=== PATIENT | male | born 1995 | race Asian ===

== ENCOUNTER 2017-09-20 18:48 | Emergency (ER) | payer OTHER ==
[2017-09-20 18:54] VITALS: BP 157/101; PULSE 95; RESP 16; TEMP 97.5; O2SAT 97
--- NOTE | 2017-09-20 19:22 | EDPHY ---
H & P Time Seen by Provider: 09/20/17 19:11 HPI/ROS: CHIEF COMPLAINT: Boil in the armpit HISTORY OF PRESENT ILLNESS: Swelling right armpit and pain x1 week, history of previous abscess REVIEW OF SYSTEMS: No IV drug abuse and no fevers or chills, no weakness or numbness in the right hand PAST MEDICAL HISTORY: Negative, no diabetes General Appearance: Alert and conversant, cooperative. Patient has 2 areas of swelling induration and fluctuance in the right armpit, 1 is 1 cm and 1 is 5 mm. Very mild surrounding erythema. No blisters or crepitus. Normal motor and sensory in the right hand before and after the procedure.. Emergency Department course/MDM: Procedure: Abscess drainage. The patient's abscess was located on the right armpit x2. I obtained verbal consent from the patient to drain the abscess who was informed about the possibility of bleeding and pain. The area was prepped and draped in the usual sterile fashion, with 1% lidocaine without epinephrine used for local anesthesia. The abscess was incised with a #11 scalpel and a small amount of purulent drainage was expressed. I irrigated the wound and placed iodoform packing. The patient tolerated the procedure well. The procedure was performed by myself. Smoking Status: Never smoked Constitutional: Initial Vital Signs Temperature (C) 36.4 C 09/20/17 18:49 Heart Rate 95 09/20/17 18:49 Respiratory Rate 16 09/20/17 18:49 Blood Pressure 157/101 H 09/20/17 18:49 O2 Sat (%) 97 09/20/17 18:49 O2 Delivery Mode Room Air Allergies/Adverse Reactions: No Known Allergies Allergy (Unverified 09/20/17 18:54) Home Medications: Medication Instructions Recorded Cephalexin [Keflex] 500 mg PO QID #28 cap 09/20/17 Sulfamethox/Tmp 800/160 mg 1 tab PO BID@1000,2200 #14 tab 09/20/17 [Bactrim Ds] MDM/Departure - Depart Disposition: Home, Routine, Self-Care Clinical Impression: Cutaneous abscess of right axilla Condition: Good Instructions: Cephalexin (By mouth), Sulfamethoxazole/Trimethoprim (By mouth), Abscess (ED) Prescriptions: Cephalexin [Keflex] 500 mg PO QID #28 cap Sulfamethox/Tmp 800/160 mg [Bactrim Ds] 1 tab PO BID@1000,2200 #14 tab Referrals: James Lowry MD [Medical Doctor] - 3-4 days, if not improved
[2017-09-20] MEDS ORDERED: CEPHALEXIN 500 MG CAP PO ONE (19:23)
[2017-09-20] MEDS ORDERED: SULFAMETHOX/TMP 800/160 MG 1 TAB PO ONE (19:23)
== END 2017-09-20 19:36 | disposition home or self-care (01) ==
PROC: 0H9BXZZ Drainage of Right Upper Arm Skin, External Approach (ICD-10-PCS; principal; 2017-09-20)
DX: L02.411 Cutaneous abscess of right axilla (principal)

== ENCOUNTER 2017-10-22 17:26 | Emergency (ER) | payer OTHER ==
[2017-10-22 17:31] VITALS: BP 152/102
--- NOTE | 2017-10-22 17:49 | EDPHY ---
H & P Stated Complaint: abcess under R arm Source: Patient Exam Limitations: No limitations - Personal History Current Tetanus/Diphtheria Vaccine: Unsure Current Tetanus Diphtheria and Acellular Pertussis (TDAP): Unsure - Medical/Surgical History Hx Asthma: No Hx Chronic Respiratory Disease: No Hx Diabetes: No Hx Cardiac Disease: No Hx Renal Disease: No Hx Cirrhosis: No Hx Alcoholism: No Hx HIV/AIDS: No Hx Splenectomy or Spleen Trauma: No Other PMH: R arm abcess, - Social History Smoking Status: Never smoked Time Seen by Provider: 10/22/17 17:49 HPI/ROS: HPI: This is a 22-year-old male who presents with Chief Complaint: Abscess right armpit Location: Right armpit Quality: Abscess Duration: 2 days Signs and Symptoms: No bleeding, no radiation, no numbness, no weakness, no tingling, no decreased range of motion, + swelling, no pain, no fever Timing: Acute, rapid onset Severity: [id number] Context: Patient is generally healthy, seen in this ER for the same complaint 1 month ago status post incision and drainage presents today with complaints of right armpit abscess that has gradually worsened over the last 2 days. Patient reports that he used to shave his armpits until last month when he came to the emergency room and has not shave since that time. He uses Dove soap. Has not tried any [id number]-hlp-[id number] medications or applied warm compresses. No history of diabetes mellitus/MRSA. Not an IV drug user. Modifying Factors: None Comment: ROS: see HPI Constitutional: No fever, no chills, no weight loss Eyes: No blurred vision Respiratory: No shortness of breath, no cough Cardiovascular: No chest pain Gastrointestinal: No nausea, no vomiting no diarrhea Genitourinary: No dysuria Extremities: No myalgias Neurologic: No weakness, no numbness Skin: No rashes Hematologic: No bruising, no bleeding MEDICAL/SURGICAL/SOCIAL HISTORY: Medical history: Generally healthy. Does not take any regular medications. Surgical history: Denies Social history: [place] speaking. Student. CONSTITUTIONAL: awake and alert, no obvious distress HEENT: Atraumatic and normocephalic, PERRL, EOMI. Tympanic membranes clear. Oropharynx clear, no exudate and moist pink mucosa. Airway patent. No lymphadenopathy. No meningismus. Cardiovascular: Normal S1/S2, regular rate, regular rhythm, without murmur rub or gallop. PULMONARY/CHEST: Symmetrical and nontender. Clear to auscultation bilaterally. Good air movement. No accessory muscle usage. ABDOMEN: Soft, nondistended, nontender, no rebound, no guarding, no peritoneal signs, no masses or organomegaly. No CVAT. EXTREMITIES: 2/2 pulses, strength 5/5, no deformities, no clubbing, no cyanosis or edema. NEUROLOGICAL: no focal neuro deficits. GCS 15. SKIN: Warm and dry, 3 mm raise; fluctuant abscess located right axilla; no surrounding erythema. no rash. Good capillary refill. (Ofelia uJlien) Constitutional: Initial Vital Signs Temperature (C) 36.6 C 10/22/17 17:29 Heart Rate 90 10/22/17 17:29 Respiratory Rate 16 10/22/17 17:29 Blood Pressure 152/102 H 10/22/17 17:29 O2 Sat (%) 99 10/22/17 17:29 O2 Delivery Mode Room Air Allergies/Adverse Reactions: No Known Allergies Allergy (Unverified 10/22/17 17:28) Home Medications: Medication Instructions Recorded Cephalexin [Keflex (*)] 500 mg PO TID #21 cap 10/22/17 Sulfamethox/Tmp 800/160 mg 1 tab PO BID #14 tab 10/22/17 [Bactrim Ds] Medical Decision Making Procedures: Procedure: Abscess drainage. The patient's abscess was located on the right axilla. I obtained verbal consent from the patient to drain the abscess who was informed about the possibility of bleeding and pain. 4 mL of 1% lidocaine with epinephrine was used for anesthesia. The abscess was incised with#11 scalpel and a 5 mL amount of purulent drainage was expressed. I irrigated the wound and placed some 1/2 inch packing. The patient tolerated the procedure well. The procedure was performed by myself. (Ofelia Julien) ED Course/Re-evaluation: I and D performed. Packing and Dressing placed Given Keflex and Bactrim. This patient was seen under the supervision of my secondary supervising physician. I evaluated care for this patient independently. (Ofelia Julien) The patient was evaluated and managed by the physician operator assistant i cementing. I have reviewed this chart and I agree with the findings and plan of care as documented , as indicated by my signature. I am the secondary supervising physician. ( Mahogany Pina) Differential Diagnosis: Differential diagnosis includes but is not limited to hidradenitis suppurative, abscess, cellulitis. (Ofelia Julien) Departure - Departure Disposition: Home, Routine, Self-Care Clinical Impression: Abscess of right axilla Condition: Good Instructions: Abscess Incision and Drainage (DC) Additional Instructions: Keep the dressing and packing dry and in place for 48 hours. After 48 hours, you may remove the dressing; wash the site daily with antibacterial soap and water; then pat dry. Take Tylenol 650 mg every 4 hours and/or Ibuprofen 600 mg every 8 hours with food as needed for pain. Take Keflex and Bactrim x7 days until complete. Return to the ER immediately if you experience redness, red streaks, have fevers /chills, flu like symptoms, limited range of motion, or any other symptoms that concern you. Referrals: ROMAN Vasquez,. [Clinic] - As per Instructions Prescriptions: Cephalexin [Keflex (*)] 500 mg PO TID #21 cap Sulfamethox/Tmp 800/160 mg [Bactrim Ds] 1 tab PO BID #14 tab
== END 2017-10-22 18:10 | disposition home or self-care (01) ==
PROC: 0H9BXZZ Drainage of Right Upper Arm Skin, External Approach (ICD-10-PCS; principal; 2017-10-22)
DX: L02.411 Cutaneous abscess of right axilla (principal)